=== PATIENT | male | born 1975 | race African-American/Black ===

== ENCOUNTER 2019-06-27 20:17 | Inpatient (IN) | payer OTHER ==
[~2019-06-27] VITALS: Ht 182.9 cm; Wt 145.0 kg
[~2019-06-27 20:17] MED LIST: IBUPROFEN 600600 M1 PO; IBUPROFEN 800800 MG PO; NORCO 5-325 TA1 EACH PO; TOBRAMYCIN SULFA5 ML IO; ZPAK PO
[2019-06-27 20:19] VITALS: BP 264/188
[2019-06-27 20:41] LABS: ABSOLUTE NEUTROPHILS 4.6 thou/uL (1.4-8.2); BASOPHILS 1.9 % (0.0-2.0); EOSINOPHILS 2.7 % (0.0-3.0); HEMATOCRIT 40.8 % (42.0-52.0); HEMOGLOBIN 12.8 gm/dL (14.0-18.0); LYMPHOCYTES 21.9 % (24.0-44.0); MCH 23.6 pg (26.0-34.0); MCHC 31.5 g/dL (28.0-37.0); MCV 74.9 fL (80.0-100.0); MONOCYTES 6.1 % (1.0-8.0); PLATELET COUNT 365 thou/uL (150-400); POLYS 67.4 % (36.0-66.0); RBC 5.44 mil/uL (4.50-6.00); RDW 17.9 % (10.5-14.5); WBC 6.8 thou/uL (4.0-11.0)
[2019-06-27 20:47] LABS: CALCIUM 9.6 mg/dL (8.5-10.1); CREATININE 1.5 mg/dL (0.7-1.3); POTASSIUM 3.6 mmol/L (3.5-5.1)
[2019-06-27 20:57] LABS: ALBUMIN 3.6 g/dL (3.4-5.0); TOTAL BILIRUBIN 0.4 mg/dL (<0.1-1.0); TOTAL PROTEIN 8.4 g/dL (6.4-8.2); TROPONIN-I 0.21 ng/mL (<0.06)
[2019-06-27 22:20] VITALS: BP 205/133
[2019-06-27 22:44] VITALS: BP 131/82
[2019-06-27 23:00] VITALS: BP 157/81
[2019-06-27 23:41] VITALS: BP 145/82
[2019-06-28] VITALS (13 sets, daily range): BP systolic 142–189; BP diastolic 77–119
--- NOTE | 2019-06-28 04:47 | NUR ---
PT NEW ADMIT OF YESTERDAY 2299. ALERT AND ORIENTED. DENIES CHEST PAIN, SOB, OR NAUSEA AND VOMITING. ADMISSION ASSESSMENT COMPLETED. PT EXPRESSES PERIODIC SOB WITH EXCERTION WHILE AT HOME AND LE SWELLING AND PAIN. CURRENT EDEMA +1, WITH GOOD PULSES, NO NOTABLE ABNORMAL LUNG SOUNDS. INITIAL VSS, BP MORE STABLE THAN WHEN PT WAS IN ER. PT DENIES TAKING HIS MEDICATIONS FOR A WHILE NOW,AND ALSO PT DOES NOT HAVE A PCP. ALL OTHER ADMISSIONS COMPLETED, CONSENT SIGNED. CARE PLAN INITATED AND ORDERS ACKNOWLEDGED. PT CURRENTLY NPO FOR A PENDING CARDIAC CONSULT. WILL CONTINUE TO MONITOR FOR NOW.
[2019-06-28 06:46] LABS: CHOLESTEROL 212 mg/dL (<200); HDL CHOLESTEROL 47 mg/dL (>40); LDL CHOLESTEROL 156 mg/dL (<100); TC:HDL 4.5 Ratio (Not establshd); TRIGLYCERIDE 48 mg/dL (<150); VLDL 10 mg/dL (<40)
[2019-06-28 06:47] LABS: SERUM ASSESSMENT Clear
--- NOTE | 2019-06-28 07:58 | EKG ---
[address] [place] [address] ELECTROCARDIOGRAM REPORT Name: SAMALISA A Room #: 211-P ADM IN M.R.#: [id number] Admission: 06/27/19 Attend Phys: Adonis Snyder MD Discharge: Date of : 77 Report #: [id number] THIS REPORT FOR: //name// [facility] ED Test Date: 2019-06-27 Test Time: 20:25:43 Pat Name: ALISA VARGAS Department: Room: 211 Gender: M Software Qa Manager: MAICO : 1975 Requested By: Hina Jin Order Number: [id number] MD: Isaiah Johnson Measurements Intervals [place] Rate: 110 P: 43 VT: 176 QRS: 35 QRSD: 93 T: 158 QT: 344 QTc: 466 Interpretive Statements Sinus tachycardia Abnormal R-wave progression, late transition Abnormal T, diffuse leads Baseline wander in lead(s) V1 Compared to ECG 04/15/2011 20:13:58 T-wave abnormality now present Electronically Signed On 06-28-2019 7:57:43 BOBBIN STRIPPER by Isaiah Johnson [email or web address] <ELECTRONICALLY SIGNED> By: Isaiah Johnson MD, [facility] 06/28/19 0757 24 24 Isaiah Johnson MD, [facility] /EPI
[2019-06-28 10:41] LABS: % SATURATION 14 % (20-39); IRON 47 ug/dL (65-175); TIBC 346 ug/dL (250-450)
--- NOTE | 2019-06-28 11:46 | CATHLAB ---
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 A TRANSRADIAL SLENDER 6F GLIDESHEATH KIT #[id number] sheath was inserted into the Right Radial Artery^. Coronary angiography was performed using coronary diagnostic catheters. The right coronary system was accessed and visualized with a 5FR JL 3.5 #[id number] JR 4 #[id number] catheter. The left coronary system was accessed and visualized with a 5FR JL 3.5 #[id number] catheter. The left ventricle was accessed and visualized with a 5FR JR 4 #[id number] catheter. Left ventricular/Aortic Valve gradient assessed via catheter pullback. Closure device was deployed with a Fr VASC BAND XL 29CM #[id number]. The patient tolerated the procedure well and there were no complications associated with the procedure. There was no hematoma. Intraoperative Conscious Sedation Sedation start time: 9.33 Case end Time: 9.51 Fentanyl 50 mcg Versed 1 mg Fluoro Time: 4.20 minutes [facility] [place] [address] INVASIVE PROCEDURE REPORT Name: ALISA VARGAS Room #: 211-P [facility] IN .R.#: [id number] Admission: 06/27/19 Attend Phys: Adonis Snyder MD Discharge: Date of : 77 Report #: [id number] Dose: DAP 8700.00 cGycm2 1441 mGy Contrast Type and Amount: Omnipaque 70 ml Coronary Angiography The patient's coronary anatomy is right dominant. Diagnostic Cath Left Main The left main artery is a large-caliber vessel, patent with no flow-limiting lesions. LAD The LAD is a moderate to large caliber vessel, traverses the anterior wall and wraps around the apex. This vessel is patent with no flow-limiting lesions. There may be minimal luminal irregularities within the mid segment. Diagonal 1 This is a patent vessel, with no flow-limiting lesions. Circumflex Supplies 2 obtuse marginal arteries. OM1 This is a moderate size caliber vessel, with no flow-limiting lesions. OM2 This is a moderate size caliber vessel, with no flow-limiting lesions. Right Coronary This is a moderate to large caliber vessel, dominant as it supplies the PDA and RPL branches. This vessel is patent with no flow-limiting lesions. R PDA This is a moderate size caliber vessel, with no flow-limiting lesions. RPLV This is a moderate size caliber vessel, with no flow-limiting lesions. Left Ventriculography Left Ventriculography was not performed. An LVEDP was measured, there is no gradient across the outflow tract. Hemodynamics The aortic pressure is 169/120 mmHg with a mean of 143 mmHg. The left ventricular pressure is 142/17 mmHg with a mean of mmHg. The left ventricular end diastolic pressure is 30 mmHg. There was no gradient across the aortic valve upon pullback. Pullback from the left ventricle to the aorta revealed no gradient across the aortic valve. Conclusion 1. Angiographically normal coronary arteries. There may be minimal luminal irregularities within the mid segment of the LAD. [facility] [address] [place] [address] INVASIVE PROCEDURE REPORT Name: ALISA VARGAS Room #: 211-P [facility] IN M.R.#: [id number] Admission: 06/27/19 Attend Phys: Adonis Snyder MD Discharge: Date of : 77 Report #: [id number] 2. Right dominant system. 3. Recommend risk factor management. <ELECTRONICALLY SIGNED> By: Segundo Duran MD 06/28/19 1145 1145 1145 Segundo Duran MD /INF
--- NOTE | 2019-06-28 18:40 | NUR ---
ASSUMED CARE AT SHIFT CHANGE, ALERT AND ORIENTED X4. BP REMAINED ELEVATED THROUGH OUT THE DAY, AND PATIENT WAS GIVEN PO BP MEDS POST CARDIAC CATH. BP IMPROVED , OTHER VSS. AND WILL CONTINUE WITH POC.
[2019-06-29] VITALS (8 sets, daily range): BP systolic 145–201; BP diastolic 88–125
[2019-06-29 03:52] LABS: HEMATOCRIT 38.8 % (42.0-52.0); HEMOGLOBIN 12.2 gm/dL (14.0-18.0); MCH 23.9 pg (26.0-34.0); MCHC 31.3 g/dL (28.0-37.0); MCV 76.2 fL (80.0-100.0); RBC 5.1 mil/uL (4.50-6.00); RDW 17.8 % (10.5-14.5); WBC 7.8 thou/uL (4.0-11.0)
[2019-06-29 04:17] LABS: CALCIUM 9.2 mg/dL (8.5-10.1); CREATININE 1.2 mg/dL (0.7-1.3); POTASSIUM 3.8 mmol/L (3.5-5.1); TROPONIN-I 0.21 ng/mL (<0.06)
--- NOTE | 2019-06-29 04:26 | NUR ---
ASSUMED CARE 1899. PT ALERT AND ORIENTED. ELEVATED BP. CARDIOLOGY , DR KEARNS NOTIFIED. ORDER, CLONADINE Q2H PRN FOR SBP>160. CLONADINE GIVEN ALMOST Q2H, SBP LESS THAN 160 NOT ACHIEVED. WILL CONTINUE TO MONITOR VITALS, NO EPISODE OF CHEST PAIN, NAUSEA OR VOMITING REPORTED. WILL CONTINUE TO FOLLOW POC
--- NOTE | 2019-06-29 11:47 | 2DMMODE ---
[facility] [address] [place] [address] 2 D/M-MODE ECHOCARDIOGRAM Name: ALISA VARGAS Room #: 211-P [facility] IN ..#: [id number] Admission: 06/27/19 Attend Phys: Adonis Snyder MD Discharge: Date of : 77 Report #: [id number] THIS REPORT FOR: //name// APPROVED REPORT Study performed: 06/29/2019 09:35:19 EXAM: Comprehensive 2D, Doppler, and color-flow Echocardiogram Patient Location: Echo lab Room #: [facility] Status: routine BSA: 2.79 HR: 82 bpm BP: 175/125 mmHg Rhythm: NSR Other Information Study Quality: Adequate Indications Dyspnea Chest Pain Hypertension/HDD 2D Dimensions RVDd: 42.39 mm IVSd: 23.64 (7-11mm) LVOT Diam: 27.02 (18-24mm) LVDd: 49.10 mm PWd: 23.19 (7-11mm) Ascending Ao: 33.76 (22-36mm) LVDs: 36.00 (25-40mm) Aortic Root: 30.14 mm Volumes Left Atrial Volume (Systole) Single Plane 4CH: 126.44 mL Single Plane 2CH: 89.34 mL LA ESV Index: 43.00 mL/m2 Aortic Valve AoV Peak Mika.: 1.38 m/s AO Peak Gr.: 7.67 mmHg LVOT Max P.83 mmHg LVOT Max V: 0.84 m/s APRIL Vmax: 3.48 cm2 Mitral Valve E/A Ratio: 1.9 [facility] [address] [place] [address] 2 D/M-MODE ECHOCARDIOGRAM Name: ALISA VARGAS Room #: 211-P [facility]#: [id number] Admission: 06/27/19 Attend Phys: Adonis Snyder MD Discharge: Date of : 77 Report #: [id number] MV Decel. Time: 120.62 ms MV E Max Mika.: 0.81 m/s MV A Mika.: 0.42 m/s MV PHT: 34.98 ms IVRT: 106.11 ms Pulmonary Valve PV Peak Mika.: 1.10 m/s PV Peak Gr.: 4.86 mmHg Pulmonary Vein P Vein S: 0.45 m/s P Vein A: 0.17 m/s P Vein D: 0.64 m/s P Vein A Dur.: 92.3 msec P Vein S/D Ratio: 0.70 Tricuspid Valve TR Peak Mika.: 2.89 m/s TR Peak Gr.: 33.33 mmHg PA Pressure: 33.00 mmHg Left Ventricle The left ventricle is normal size. There is normal LV segmental wall motion. Severe concentric left ventricular hypertrophy. Left ventricular systolic function is borderline. LVEF is 50%. Moderate diastolic dysfunction is present (pseudonormal filling). Right Ventricle The right ventricle is normal size. The right ventricular systolic function is normal. Atria Left atrium is dilated. Right atrium is dilated. Aortic Valve The aortic valve is normal in structure. No aortic regurgitation is present. There is no aortic valvular stenosis. Mitral Valve The mitral valve is normal in structure. Mild mitral regurgitation. No evidence of mitral valve stenosis. Tricuspid Valve The tricuspid valve is normal in structure. There is mild tricuspid regurgitation. Pulmonic Valve The pulmonary valve is normal in structure. There is no pulmonic [facility] [address] [place] [address] 2 D/M-MODE ECHOCARDIOGRAM Name: ALISA VARGAS Isac Room #: 211-P [facility] IN .R.#: [id number] Admission: 06/27/19 Attend Phys: Adonis Snyder MD Discharge: Date of : 77 Report #: [id number] valvular regurgitation. Great Vessels The aortic root is normal in size. IVC is not well visualized. Pericardium Small pericardial effusion. <Conclusion> The left ventricle is normal size. Severe concentric left ventricular hypertrophy. Left ventricular systolic function is borderline. LVEF is 50%. Moderate diastolic dysfunction is present (pseudonormal filling). The right ventricle is normal size. Left atrium is dilated. The aortic valve is normal in structure. Mild mitral regurgitation. There is mild tricuspid regurgitation. <ELECTRONICALLY SIGNED> By: Segundo Duran MD 06/29/19 1146 1146 1146 Segundo Duran MD /INF
--- NOTE | 2019-06-29 13:50 | NUR ---
Assess due to high BMI 51.2=extreme class III obesity. Admitted with new dx CHF, and HTN emergency. Eating well, wts elevated due to fluid status. Started on lipitor for high chol 212, LDL 156. Low nutrition risk. See RD education note for further information.
--- NOTE | 2019-06-29 17:44 | NUR ---
BP REMAINS ELEVATED, NEW BP MEDS GIVEN AND PATIENT BP MONITERED. PROGRSSEING TOWARDS GOALS, AND WILL CONTIUE WITH POC.
[2019-06-30] VITALS (8 sets, daily range): BP systolic 145–173; BP diastolic 79–121
--- NOTE | 2019-06-30 04:53 | NUR ---
1900, PT ALERT A ND ORIENTED. NO CP, NAUSEA, VOMITING, LIGHTHEADEDNESS, DIZZINESS REPORTED. BP REMAINS ELEVATED. PT STARTED ON METOPROLOL 12.5 LAST NIGHT, NO ADVERSE EFFECTS REPORTED. HYDRALAZINE GIVEN SCHEDULED FOR SBP > 150. WILL CONTINUE TO MONITOR PTS BP.
[2019-06-30 05:56] LABS: CALCIUM 9.3 mg/dL (8.5-10.1); CREATININE 1.3 mg/dL (0.7-1.3); POTASSIUM 3.5 mmol/L (3.5-5.1)
--- NOTE | 2019-06-30 18:02 | NUR ---
PT HAS BEEN UP AD ANGEL IN ROOM TODAY. NO CHEST PAIN, NO SOA. PT HAD RENAL DOPPLER TODAY. SKIN REMAINS INTACT. PT EATING 100% OF MEALS.
[2019-07-01 00:01] VITALS: BP 155/95
[2019-07-01 03:15] VITALS: BP 168/89
--- NOTE | 2019-07-01 04:52 | NUR ---
ASSESSMENT DOCUMENTED.PT BEEN RESTING IN NO ACUTE DISTRESS.A/OX4.VSS.BLOOD PRESSURE ELEVATED,TREATED WITH PRN HYDRALZINE.SR ON MONITOR.PT DENIES ANY CONCERNS.UP AD ANGEL TO BR,ON FLUID RESTRICTION 1500ML/24.POC IS TO CONT TO MONITOR BLOOD PRESSURE WITH POSSIBLE DISCHARGE TO HOME TODAY.
[2019-07-01 08:00] VITALS: BP 144/71
[2019-07-01 11:00] VITALS: BP 144/79
[2019-07-01] MEDS ORDERED: LIPITOR40 MG PO (14:16)
[2019-07-01] MEDS ORDERED: AMLODIPINE BESY10 MG PO (14:16)
[2019-07-01] MEDS ORDERED: TRIAMTERENE-HC1 EAC1 PO (14:17)
[2019-07-01] MEDS ORDERED: BENICAR40 MG PO (14:17)
[2019-07-01] MEDS ORDERED: ASA81BEC PO (14:18)
[2019-07-01] MEDS ORDERED: PEPCID20 MG PO (14:18)
--- NOTE | 2019-07-01 15:01 | NUR ---
RECEIVED PT'S CARE AROUND 0735; PT. ON BED; RESTING WITH EYES CLOSED; AXO4; DURING AM MEDICATIONS NO C/O CP OR PAIN; AM MEDICATIONS GIVEN; ASKED IF MIGHT BE D/C TODAY (07/01/2019); NO D/C ORDERS ON PLACE, BUT POC BASED ON NOTES POSSIBLE D/C ON 07/01/2019; DR. LUCAS ROUNDING; SBP LESS THAN 160; HR ON THE MONITOR; WORKING ON D/C PAPERS; PT. NOTIFIED OF D/C ORDERS; [facility];
[2019-07-01 15:13] VITALS: BP 144/79
--- NOTE | 2019-07-14 12:41 | EKG ---
[place] [address] [facility] [place] [address] ELECTROCARDIOGRAM REPORT Name: SAMALISA A Room #: 211-[facility] IN M.R.#: [id number] Admission: 06/27/19 Attend Phys: Adonis Snyder MD Discharge: 07/01/19 Date of : 77 Report #: [id number] THIS REPORT FOR: //name// [facility] Test Date: 2019-06-30 Test Time: 08:32:21 Pat Name: ALISA VARAGS Department: Room: 211 P Gender: M Spar Cap Beveler: Clay MAURICE : 1975 Requested By: Marisol Beauchamp Order Number: [id number] MD: Isaiah Johnson Measurements Intervals [place] Rate: 66 P: 22 AK: 174 QRS: 54 QRSD: 93 T: 186 QT: 412 QTc: 432 Interpretive Statements Sinus rhythm Probable LVH with secondary repol abnrm vs ischemia Compared to ECG 06/29/2019 07:38:29 No significant changes Electronically Signed On 07-01-2019 8:03:55 COMPENSATION ADMINISTRATOR by Isaiah Johnson [email or web address] <ELECTRONICALLY SIGNED> By: Isaiah Johnson MD, [facility] 07/01/19802 08 08 Isaiah Johnson MD, [facility] /EPI
--- NOTE | 2019-07-15 11:20 | EKG ---
[address] [place] [address] ELECTROCARDIOGRAM REPORT Name: SAMALISA A Room #: 211-[facility] IN M.R.#: [id number] Admission: 06/27/19 Attend Phys: Adonis Snyder MD Discharge: 07/01/19 Date of : 77 Report #: [id number] THIS REPORT FOR: //name// [facility] Test Date: 2019-06-29 Test Time: 07:38:29 Pat Name: ALISA VARGAS Department: Room: 211 P Gender: M Tanker Driver: VIKI : 1975 Requested By: Segundo Duran Order Number: [id number] MD: Panchito Clark Measurements Intervals [place] Rate: 76 P: 44 IL: 196 QRS: 30 QRSD: 96 T: 168 QT: 418 QTc: 471 Interpretive Statements Sinus rhythm Probable left atrial enlargement Abnormal T, consider ischemia, diffuse leads Compared to ECG 06/27/2019 20:25:43 Electronically Signed On 06-29-2019 8:03:59 BUSINESS DEPARTMENT CHAIR by Panchito Clark [email or web address] <ELECTRONICALLY SIGNED> By: Panchito Clark MD 01/802 7 7 Panchito Clark MD /REINA
== END 2019-07-01 16:25 | disposition home or self-care (01) | DRG 286 ==
LOC: ER 20:17 → 2N 21:36 → EROBS 21:36 → 2N 22:40 → ENTRNSPT 07-01 15:57 → 2N 07-01 16:25
PROVIDERS: Internal Medicine; Internal Medicine Cardiovascular Disease; Nurse Practitioner Acute Care; Physician Assistant; ADMIT Hospitalist
DX: I16.0 Hypertensive urgency (principal); I50.33 Acute on chronic diastolic (congestive) heart failure; I25.110 Atherosclerotic heart disease of native coronary artery with unstable angina pectoris; N17.9 Acute kidney failure, unspecified; Z68.43 Body mass index [BMI] 50.0-59.9, adult; I11.0 Hypertensive heart disease with heart failure; I45.9 Conduction disorder, unspecified; G47.33 Obstructive sleep apnea (adult) (pediatric); E66.01 Morbid (severe) obesity due to excess calories; K21.9 Gastro-esophageal reflux disease without esophagitis; D50.9 Iron deficiency anemia, unspecified; E78.00 Pure hypercholesterolemia, unspecified; E78.5 Hyperlipidemia, unspecified; Z79.82 Long term (current) use of aspirin; Z79.01 Long term (current) use of anticoagulants; Z91.14 Patient's other noncompliance with medication regimen; Z79.899 Other long term (current) drug therapy; Z82.49 Family history of ischemic heart disease and other diseases of the circulatory system; Z23 Encounter for immunization
CPT/HCPCS: 10081